=== PATIENT | female | born 1980 | race Caucasian/White ===

== ENCOUNTER → 2020-06-03 | Outpatient (CLI) | payer BC | LOC: M.LAB 12:11 | PROVIDERS: ATTEND Surgery | DX: Z01.812 Encounter for preprocedural laboratory examination (principal); Z20.828 Contact with and (suspected) exposure to other viral communicable diseases; K82.4 Cholesterolosis of gallbladder ==

== ENCOUNTER → 2020-07-18 | Outpatient (CLI) | payer BC ==
[~2020-07-18] MED LIST: DULOXETINE HCL60 MG PO
== END ==
LOC: M.LAB 12:16
PROVIDERS: ATTEND Surgery
DX: Z01.812 Encounter for preprocedural laboratory examination (principal); D41.4 Neoplasm of uncertain behavior of bladder; Z20.822 Contact with and (suspected) exposure to COVID-19

== ENCOUNTER → 2020-07-23 | Day surgery (SDC) | payer BC ==
[~2020-07-23] MED LIST changes: +OXYCODONE HCL 55 MG PO
[2020-07-23 06:37] LABS: HEMATOCRIT 40.3 % (37.0-47.0); HEMOGLOBIN 13.6 gm/dL (12.0-15.0)
--- NOTE | 2020-07-25 10:08 | OP ---
[address] [address] OPERATIVE REPORT Name: PAU MCINTOSH Room: [facility]#: [id number] Admission: 07/23/20 Attend Phys: Bernie Singh DO Discharge: Date of : 78 Report #: [id number] THIS REPORT FOR: cc: Roselia Galarza Anna S. DO ~ Bernie Singh DO DICTATED BY: Dwayne Ahuja DO DATE OF SERVICE: 07/23/2020 PREOPERATIVE DIAGNOSIS: Gallbladder polyp. POSTOPERATIVE DIAGNOSES: Gallbladder polyp and umbilical hernia. SURGEON: Bernie Singh DO CO-SURGEON: Dwayne Ahuja, PGY5 OPERATION PERFORMED: Micro-laparoscopic cholecystectomy and primary repair of umbilical hernia. ANESTHESIA: General local and TAP block. ESTIMATED BLOOD LOSS: 2 mL. SPECIMEN: Gallbladder. COMPLICATIONS: None. FINDINGS: Somewhat distended gallbladder with no adhesions. INDICATIONS: The patient is a 39-year-old female with chronic abdominal pain. She was found on workup to have some gallbladder polyps. She was informed of the risks and benefits of micro-laparoscopic cholecystectomy with risks including but not limited to bleeding, infection, bile duct injury, bowel injury, need for open procedure, hernia formation, need for reoperation, chronic diarrhea. She voiced understanding of these risks and decided to proceed with surgery. DESCRIPTION OF PROCEDURE: After informed consent was obtained, the patient was brought to the operating room and placed in supine position. SCDs were on and running. Preoperative antibiotics were given. General anesthesia was administered with an ET tube. Bilateral transversus abdominis plane blocks were placed by anesthesia. The patient was prepped and draped in the usual sterile fashion. A surgical pause was held to confirm proper [place] [address] OPERATIVE REPORT Name: PAU MCINTOSH Room: [facility]#: [id number] Admission: 07/23/20 Attend Phys: Bernie Signh DO Discharge: Date of : 78 Report #: [id number] 0.5% Marcaine was injected inferior to the umbilicus. The infraumbilical skin was elevated with 2 Adson's and incised using an 11 blade. Dissection was bluntly carried around the obvious umbilical hernia using a Laureen until the hernia was isolated from the umbilical stalk and the umbilical skin. The hernia contents were reduced into the preperitoneal space. The defect was quite small. Kochers were placed on either side of the hernia defect and the fascial incision was incised and extended using cautery. Once large enough to adequately accommodate a finger, a finger was introduced into the abdomen and used to break through the peritoneum. The Levy trocar was introduced. Insufflation was begun. A camera was inserted. There was some insufflation in the preperitoneal space and the falciform ligament. The trocar was extracted. Blunt dissection with a finger was then used to further confirm the intraperitoneal location. The trocar was replaced into the peritoneum. The abdomen was insufflated. The Levy trocar was secured with 2-0 Vicryl stay sutures on either side of the fascia. The patient was positioned head up and right side up. A 5 mm trocar in the epigastrium was placed under direct visualization, two micro-laparoscopic ports 3 mm in size were placed in the right upper quadrant under direct visualization. The gallbladder was then elevated and reflected cephalad. The cystic duct and common bile duct were identified. The peritoneum over the hepatocystic triangle incised using cautery. The spleen was extended laterally as well as medially. Blunt dissection with a [place] was used to circumferentially dissect the cystic duct and cystic artery. Once a critical view of safety was obtained with 2 and only two structures entering the gallbladder, laparoscopic clip manager media was used to doubly clip the cystic duct and singly clipped the cystic artery. Laparoscopic bryson were used to divide both the gallbladder was elevated and dissected free from the liver bed using cautery. Once completely free, it was placed within an EndoCatch bag and placed aside. The liver bed was inspected and hemostatic. Clips were hemostatic. There was no bile leak. The patient was returned to supine position. The abdomen was desufflated. All ports were removed under direct visualization without any peritoneal bleeding. The Levy trocar was removed. The specimen was removed through the umbilical incision. The previous stay sutures were elevated and replaced with 2 Kochers. Some adhesions to the umbilical hernia defect were taken down using cautery. The hernia defect was closed primarily using a single [id number] using 0 Vicryl. A 0.5% Marcaine was injected at all incision sites. The umbilical incision was closed in layered fashion using 3-0 Vicryl and 4-0 Monocryl. The epigastric port site was closed using 4-0 Monocryl. The two micropuncture sites were closed with Dermabond. Remainder of the wounds were cleansed and dressed with Dermabond. The patient was emerged from anesthesia and transferred to the PACU in stable condition. All counts were correct. There have been no complications. <ELECTRONICALLY SIGNED> By: Bernie Singh DO 07/25/20 1008 [id number] 0926Bernie Singh DO /nt
--- NOTE | 2020-07-26 18:06 | PATH ---
[address] [address] PATHOLOGY RPT PROCEDURE Name: HUMA MCINTOSH Room: [facility]#: [id number] Admission: 07/23/20 Date of : 78 Discharge: Report #: [id number] Path Case #: [id number] [facility] Accession Number: [id number] . 01 Material submitted: . gallbladder - GALLBLADDER WITH CONTENTS . 01 Clinical history: . GALLBLADDER WITH POLYPS, UMBILICAL HERNIA . 02 Diagnosis: Gallbladder: - Chronic cholecystitis with cholesterolosis including prominent cholesterol polyps. . (MARTÍNEZ:mml; 07/26/2020) [facility] 07/26/2020 1535 Local . 02 Electronically signed: . Praful Plummer MD, Pathologist NPI- [id number] . 01 Gross description: . Received in formalin labeled "Sterba, Huma, gallbladder" is an intact cholecystectomy specimen measuring 8.0 x 4.5 x 3.3 cm. The serosa is magana-green and smooth and the specimen is opened to reveal green velvety mucosa. Within the gallbladder body is a nodular/polypoid area measuring 1.4 x 0.9 x 0.2 cm, which is located 2.7 cm from the cystic duct margin and 1.7 cm from the hepatic bed margin. Loose within the gallbladder are multiple additional friable polypoid fragments measuring in aggregate 0.7 x 0.7 x 0.5 cm. The average wall thickness is 0.1-0.2 cm. Calculi are not present. Lens Polisher sections are submitted as follows: A1 cystic duct margin and sales representative adding machines fundus A2 entire polypoid area A3 separate detached polypoid fragments ([facility] [place]; 07/25/2020) [facility] 07/25/2020 1220 Local . 02 Pathologist provided ICD-10: K81.1, K82.4 . 02 CPT . 937453 Specimen Comment: A courtesy copy of this report has been sent to [phone], [phone] Specimen Comment: [phone] Specimen Comment: Report sent to / DR SMALLWOOD Performed at: 01 [place] [address] PATHOLOGY RPT PROCEDURE Name: HUMA MCINTOSH Room: [facility]#: [id number] Admission: 07/23/20 Date of : 78 Discharge: Report #: [id number] Path Case #: [id number] [address] [facility] [address], [place], [place] [id number] MD Pal Hyatt MD Phone: [phone] Performed at: 02 [facility] [address], [place] [id number] MD Praful Plummer MD Phone: [phone]
== END | disposition home or self-care (01) ==
LOC: M.SUR 06:17
PROVIDERS: ATTEND Surgery
DX: K81.1 Chronic cholecystitis (principal); K42.9 Umbilical hernia without obstruction or gangrene; R10.9 Unspecified abdominal pain; F41.9 Anxiety disorder, unspecified; K21.9 Gastro-esophageal reflux disease without esophagitis; Z98.890 Other specified postprocedural states; Z79.899 Other long term (current) drug therapy